=== PATIENT | male | born 1960 | race Caucasian/White ===

== ENCOUNTER → 2016-06-01 | Day surgery (SDC) | payer OTHER ==
[~2016-06-01] MED LIST: ASPIRIN81 M2 PO; CRESTOR10 MG PO; FISH OIL 1,001000 M1 PO; LIPITOR PO; PRILOSEC PO; ZESTRIL10 MG PO
--- NOTE | ~2016-06-01 | OR ---
Unit #: [id number] #: [id number] Patient: ROSA ODOM [id number] [address] [place], [place] [address] [id number] MR#: [id number] NAME: ROSA ODOM ROOM: Date of Procedure: 06/01/2016 Admission Date: 06/01/2016 Surgeon: Hemant Montano M.D. : 1960 Attending Physician: Maurisio Ding M.D. Primary Care Physician: Win Oquendo M.D. OPERATIVE REPORT PREOPERATIVE DIAGNOSES 1. Screening colonoscopy. 2. History of polyps. POSTOPERATIVE DIAGNOSES 1. Scattered sigmoid diverticulum. 2. Sigmoid colon lipoma 0.5 cm. PROCEDURE PERFORMED Colonoscopy to cecum. ANESTHESIA IV sedation. COMPLICATIONS None. INDICATIONS FOR PROCEDURE The patient is a 55-year-old, who presents with a polyp in 2007. He presents for followup endoscopy. DESCRIPTION OF PROCEDURE The patient was taken to the operating theater and placed in left lateral decubitus position. IV sedation was initiated. Digital rectal exam was normal. Colonoscope was then passed under vision and navigated to the cecum. The patient had excellent prep. I saw sigmoid diverticulum noninflamed. He also had a small lipoma in sigmoid colon. No other neoplastic lesions. He tolerated the procedure well and sent to recovery room in good condition. PLAN Recommend repeat colonoscopy in 10 years. We will treat with Colace on a daily basis. Dictated by... Hemant Montano M.D. JNO/rainerl TD: 06/02/2016 05:06 JOB #: [id number] Unit #: [id number] #: [id number] Patient: ROSA ODOM OPERATIVE REPORT Page 1 of 1 X Hemant Montano MD X PROCEDURE OPERATIVE NOTE
== END | disposition home or self-care (01) ==
LOC: COPS 10:29
PROVIDERS: Surgery
PROC: 0DJD8ZZ Inspection of Lower Intestinal Tract, Via Natural or Artificial Opening Endoscopic (ICD-10-PCS; principal; 2016-06-01 12:30)
DX: Z12.11 Encounter for screening for malignant neoplasm of colon (principal); Z86.010 Personal history of colon polyps; K57.30 Diverticulosis of large intestine without perforation or abscess without bleeding; D17.5 Benign lipomatous neoplasm of intra-abdominal organs; Z87.442 Personal history of urinary calculi; K21.9 Gastro-esophageal reflux disease without esophagitis; I10 Essential (primary) hypertension; E78.00 Pure hypercholesterolemia, unspecified; D64.9 Anemia, unspecified; Z79.899 Other long term (current) drug therapy; Z98.890 Other specified postprocedural states; Z88.0 Allergy status to penicillin; Z88.2 Allergy status to sulfonamides
CPT/HCPCS: J2250